=== PATIENT | male | born 1960 | race Two or more races ===

== ENCOUNTER 2018-06-08 05:53 | Emergency (ER) | payer OTHER ==
[2018-06-08] MEDS ORDERED: ASPIRIN 81 MG TABLET, CHEWABLE PO ONE (05:57)
[2018-06-08 06:14] LABS: ABSOLUTE BASOPHILS # (AUTO) 0.1 10^3/uL (0.0-0.2); ABSOLUTE EOSINOPHILS # (AUTO) 0.1 10^3/uL (0.0-0.6); ABSOLUTE LYMPHOCYTES (AUTO) 1.9 10^3/uL (0.5-4.7); ABSOLUTE MONOCYTES (AUTO) 0.7 10^3/uL (0.1-1.4); ABSOLUTE NEUT (AUTO) 5.4 10^3/uL (1.7-8.2); BASOPHILS % (AUTO) 0.7 % (0-2); EOSINOPHILS % (AUTO) 1.1 % (0-6); HEMATOCRIT 39.7 % (37.9-51.0); HEMOGLOBIN 13.8 g/dL (13.5-17.0); LYMPHOCYTES % (AUTO) 23.3 % (13-45); MEAN CORPUSCULAR HGB CONC 34.7 g/dL (32.0-36.0); MEAN CORPUSCULAR VOLUME 90 fl (80-97); MONOCYTES % (AUTO) 8.3 % (3-13); PLATELET COUNT 155 10^3/uL (150-450); RED BLOOD COUNT 4.44 10^6/uL (4.35-5.55); RED CELL DISTRIBUTION WIDTH 13.4 % (11.5-14.0); SEGMENTED NEUTROPHILS % (AUTO) 66.6 % (42-78); TOTAL CELLS COUNTED % (AUTO) 100 %; WHITE BLOOD COUNT 8.2 10^3/uL (4.0-10.5)
[2018-06-08 06:35] LABS: ALANINE AMINOTRANSFERASE 27 U/L (21-72); ALBUMIN 4.7 g/dL (3.5-5.0); ALKALINE PHOSPHATASE 73 U/L (38-126); ANION GAP 18 (5-19); ASPARTATE AMINO TRANSFERASE 26 U/L (17-59); BILIRUBIN,DIRECT 0.3 mg/dL (0.0-0.4); BILIRUBIN,TOTAL 1.1 mg/dL (0.2-1.3); BLOOD UREA NITROGEN 18 mg/dL (7-20); CALCIUM 9.6 mg/dL (8.4-10.2); CARBON DIOXIDE 19 mmol/L (22-30); CHLORIDE 101 mmol/L (98-107); CREATINE KINASE 150 U/L (55-170); GLUCOSE 126 mg/dL (75-110); POTASSIUM 3.5 mmol/L (3.6-5.0); SODIUM 137.8 mmol/L (137-145); TOTAL PROTEIN 7.5 g/dL (6.3-8.2)
[2018-06-08 06:47] LABS: CREATINE KINASE MB 1.57 ng/mL (<4.55)
[2018-06-08 06:51] LABS: TROPONIN I < 0.012 ng/mL
--- NOTE | 2018-06-08 07:18 | RADIOLOGY REPORT (SQ) ---
EXAM DESCRIPTION: XR CHEST 1 VIEW COMPLETED DATE/TME: 06/08/2018 05:57 CLINICAL HISTORY: Chest pain COMPARISON: None. FINDINGS: Single frontal view of the chest. The cardiomediastinal silhouette has normal size and contour. No consolidation, pneumothorax, or pleural effusion. Leads overlie the chest. Degenerative change of the spine. Upper abdominal soft tissues are unremarkable. IMPRESSION: 1. No acute pulmonary process identified.
--- NOTE | 2018-06-08 10:03 | ER Document Report ---
ED Cardiac - General Chief Complaint: Chest Pain Stated Complaint: CHEST TIGHTNESS Time Seen by Provider: 06/08/18 07:11 Mode of Arrival: Ambulatory Information source: Patient Notes: Patient is a 58-year-old male who has complaint of left-sided lateral chest pain. Patient is the father of a 27-year-old male patient brought in by EMS and of cardiac arrest who during resuscitation attempts. It was reported that my patient became quite hysterical and after the resuscitation attempts were stopped on his son my patient became hysterical and shortly after that he began to have chest pains. Patient is a retired [employer] who was discharged with physical disability. Patient has no past history of cardiac problems and has no family history of cardiac problems. Patient does not smoke and currently is taking no medications. He states that this pain occurred when he was kneeling on his son trying to resuscitate him and it started in the left lateral ribs and seemed to move up into his chest. Indicated to me that this tightness or cramping lasted approximately 4-5 minutes and then went away. It also returned slightly after the combination of the resuscitation attempts were stopped. This time it only lasted for a minute or 2. TRAVEL OUTSIDE OF THE [place] IN LAST 30 DAYS: No - HPI Patient complains to provider of: Chest pain, Chest tightness Use of: denies: Alcohol, Amphetamines, Bath salts, Caffeine, Cocaine, Decongestants Was the onset of pain: Sudden When did pain begin: See H&P Chest pain location: Pleuritic, Under breast, Other - Left axillary area and anterior chest Quality of pain: Severe, Cramping, Sharp, Tightness. denies: Radiating Severity now: None Severity at worst: Severe Pain level currently: 4 Chest pain precipitating factors: Mental Exertion/Stress Cardiac risk factors: None Positive cardiac history: No Associated symptoms: Anxiety Exacerbated by: Activity, Emotional stress Relieved by: Rest Similar symptoms previously: No Recently seen / treated by doctor: Yes - Related Data Allergies/Adverse Reactions: No Known Allergies Allergy (Verified 01/22/16 04:28) Past Medical History - Social History Smoking Status: Never Smoker Cigarette use (# per day): No Chew tobacco use (# tins/day): No Smoking Education Provided: No Frequency of alcohol use: None Drug Abuse: None Family History: Reviewed & Not Pertinent Patient has suicidal ideation: No Patient has homicidal ideation: No Renal/ Medical History: Denies: Hx Peritoneal Dialysis Musculoskeletal Medical History: Reports Hx Arthritis - knees Past Surgical History: Reports: Hx Orthopedic Surgery - Immunizations Hx Diphtheria, Pertussis, Tetanus Vaccination: Yes Review of Systems - Review of Systems Constitutional: No symptoms reported EENT: No symptoms reported Cardiovascular: Chest pain Respiratory: No symptoms reported Gastrointestinal: No symptoms reported Genitourinary: No symptoms reported Male Genitourinary: No symptoms reported Musculoskeletal: No symptoms reported Skin: No symptoms reported Hematologic/Lymphatic: No symptoms reported Neurological/Psychological: No symptoms reported -: Yes All other systems reviewed and negative Physical Exam - Vital signs Vitals: Resp Pulse Ox 22 H 100 06/08/18 06:05 06/08/18 06:05 Interpretation: Normal - Notes Notes: Patient is a 58-year-old male who is somewhat distraught over the loss of his son. He has been actually at bedside with his son for the past hour or so. He is currently decided to come out and complete his physical examination and is saddened by the fact that he has to be inherent at this point. - General General appearance: Alert - HEENT Head: Normocephalic, Atraumatic Eyes: Normal Mucous membranes: Normal, Moist Pharynx: Normal Neck: Normal - Respiratory Respiratory status: No respiratory distress Chest status: Nontender Breath sounds: Normal. No: Rales, Rhonchi, Stridor, Wheezing Chest palpation: Normal - Cardiovascular Rhythm: Regular Heart sounds: Normal auscultation Murmur: No - Abdominal Inspection: Normal Distension: No distension. No: Distended bladder Bowel sounds: Normal Tenderness: Nontender Organomegaly: No organomegaly. No: Hepatomegaly, Splenomegaly - Neurological Neuro grossly intact: Yes Cognition: Normal Orientation: AAOx4 [place] Coma Scale Eye Opening: Spontaneous Aam[place] Coma Scale Verbal: Oriented Aamir Coma Scale Motor: Obeys Commands Aamir Coma Scale Total: 15 Speech: Normal - Psychological Associated symptoms: Depressed Course - Re-evaluation Re-evalutation: 06/08/18 10:43 I discussed history with Dr. Lima about patient and no family history of cardiac patient has no other medical problems and this discomfort patient experienced only lasted a few minutes while he was actively stressed trying to resuscitate his son and kneeling on them. Patient has not had a return to this discomfort or pain he has been in the ER for quite a while and is feeling much better in regards to the chest pain. Patient is still distraught over the loss of his 27-year-old son. Discussed with Dr. Lima we repeated EKG as well as the second troponin both of which were normal and at this time we can go ahead and discharge patient home. I did have a side talk with patient he is not suicidal at this time he is here with his and he understands that have a long difficult road ahead of them. I have offered to give him numbers for counseling and at this time he does not want that. Patient is also requesting the bacteriologist pharmaceutical be sent down for his sudden T2 - Vital Signs Vital signs: Temp Pulse Resp BP Pulse Ox 21 H 182/142 H 96 06/08/18 07:01 06/08/18 07:01 06/08/18 07:01 - Laboratory Result Diagrams: 06/08/18 06:05 06/08/18 06:05 Laboratory results interpreted by me: 06/08/18 06:05 Potassium 3.5 L Carbon Dioxide 19 L Glucose 126 H Discharge - Discharge Clinical Impression: Costochondritis, Atypical chest pain, Anxiety Disposition: HOME, SELF-CARE Instructions: Chest Wall Pain ([facility]), Chest Pain of Unclear Cause ([facility]) Additional Instructions: As we have discussed believe this is a slightly pulled muscle in your chest from the activity were described to me. The cardiac workup looks good therefore we can discharge you out of your room as he has been more time with her son. I will write you for a light muscle relaxer in case this continues to spasm. Highly recommend [facility]. If for any reason you have concerns or problems return to ER here at any time for recheck. As stated since you are Vet to suggest follow-up with him as soon as possible. Prescriptions: Cyclobenzaprine HCl [Flexeril 10 mg Tablet] 10 mg PO TIDP PRN #20 tablet PRN Reason: Forms: Elevated Blood Pressure
[2018-06-08 12:08] VITALS: BP 137/74
--- NOTE | 2018-06-08 12:40 | EKG REPORT ---
SEVERITY:- ABNORMAL ECG - SINUS RHYTHM BORDERLINE INFERIOR Q WAVES PROBABLE ANTEROLATERAL INFARCT, OLD BORDERLINE T ABNORMALITIES, INFERIOR LEADS : Confirmed by: Michelle Abebe MD 08-Jun-2018 12:39:47
--- NOTE | 2018-06-08 12:40 | EKG REPORT ---
SEVERITY:- NORMAL ECG - SINUS RHYTHM : Confirmed by: Michelle Abebe MD 08-Jun-2018 12:40:12
== END 2018-06-08 11:29 | disposition home or self-care (01) ==
LOC: ER 05:53
DX: M94.0 Chondrocostal junction syndrome [Tietze] (principal); R07.89 Other chest pain; F41.9 Anxiety disorder, unspecified
CPT/HCPCS: 36415; 71045; 80053; 82550; 82553; 84484; 85025; 93005; 93010; 99285